=== PATIENT | female | born 1960 | race American Indian/Alaskan Native ===

== ENCOUNTER 2017-01-05 10:10 | Outpatient (CLI) | payer OTHER ==
--- NOTE | 2017-01-05 11:11 | XRay Report ---
CHEST TWO VIEWS: 01/05/17 10:10:00 CLINICAL: Shortness of breath. COMPARISON: No comparison. FINDINGS: The heart is normal size with pacer leads in heart. Normal pulmonary vessels. The lungs are normally expanded and clear. Mild degenerative changes in the spine. IMPRESSION: No acute cardiopulmonary process.
--- NOTE | 2017-01-05 11:22 | XRay Report ---
AP and lateral of the lumbar spine. History: Low back pain. Findings: The vertebral body heights are well-maintained and alignment is normal. There is mild narrowing of the disc space at L5-S1. There is severe narrowing of the disc space at T12-L1. The pedicles are intact. Bony mineralization is normal. Impression: Discogenic changes at T12/L1 and L5-S1. No acute findings.
== END 2017-01-05 10:11 | disposition home or self-care (01) ==
LOC: SPVIMAG 10:10
PROVIDERS: ATTEND Family Medicine
DX: R06.02 Shortness of breath (principal); M54.5 Low back pain; R05 Cough; M47.899 Other spondylosis, site unspecified
CPT/HCPCS: 71020; 72100